=== PATIENT | female | born 2005 | race Two or more races ===

== ENCOUNTER 2025-05-25 15:19 | Outpatient (CLI) | payer OTHER | END 2025-05-25 15:20 | disposition home or self-care (01) | LOC: PRENATAL 15:19 | PROVIDERS: ATTEND Obstetrics & Gynecology Maternal & Fetal Medicine | DX: O44.02 Complete placenta previa NOS or without hemorrhage, second trimester (principal); O34.219 Maternal care for unspecified type scar from previous cesarean delivery; O36.8130 Decreased fetal movements, third trimester, not applicable or unspecified; Z3A.24 24 weeks gestation of pregnancy ==